=== PATIENT | female | born 1995 | race African-American/Black ===

== ENCOUNTER 2018-07-09 03:49 | Emergency (ER) | payer MEDICAID ==
[~2018-07-09] VITALS: Ht 157.5 cm; Wt 61.0 kg
[~2018-07-09 03:49] MED LIST: ANTIBIOTICS; FERR-43 PO; PREN-88 PO; VICODIN
[2018-07-09 04:09] VITALS: BP 135/71
== END 2018-07-09 07:55 | disposition left against medical advice (07) ==
LOC: ER 07:50
DX: Z53.21 Procedure and treatment not carried out due to patient leaving prior to being seen by health care provider (principal)

== ENCOUNTER 2018-07-12 14:06 | Emergency (ER) | payer MEDICAID ==
[~2018-07-12] VITALS: Ht 165.1 cm; Wt 60.0 kg
[2018-07-12] MEDS: ACETAMINOPHEN 325MG TABLET PO PRN ×3 (15:56→16:11)
[2018-07-12] MEDS ORDERED: METOCLOPRAMIDE HCL 10MG/2ML VIAL IV NR (16:15)
[2018-07-12 18:01] LABS: BASOPHILS % 0.5 % (0.0-2.0); EOSINOPHILS % 0.3 % (0.0-5.0); HEMATOCRIT. 35.1 % (36.0-48.0); HEMOGLOBIN. 11.7 g/dL (12.0-16.0); LYMPHOCYTES % 15.1 % (20.0-50.0); MEAN CORPUSCULAR HEMOGLOBIN 29.6 pg (28.0-32.0); MEAN PLATELET VOLUME 9.6 fl (7.4-10.4); MONOCYTES % 7.1 % (2.0-8.0); PLATELET 243 x1000/uL (130-400); RED BLOOD CELL COUNT 3.95 mill/uL (4.2-5.4); RED CELL DISTRIBUTION WIDTH 15.2 % (11.6-14.6)
[2018-07-12 18:07] LABS: CHLORIDE 105 mEq/L (98-107)
[2018-07-12 18:31] LABS: B-HCG QUANTITATIVE 1740 mIU/mL (<3)
[2018-07-12 19:40] LABS: CLARITY URINE CLEAR (CLEAR); COLOR URINE YELLOW (YELLOW); KETONES URINE 2+ (NEGATIVE); LEUKOCYTE ESTERASE URINE NEGATIVE (NEGATIVE); NITRITE URINE NEGATIVE (NEGATIVE); OCCULT BLOOD URINE 3+ (NEGATIVE); PH URINE 6.5 (4.5-8.0); PROTEIN URINE NEGATIVE (NEGATIVE); SPECIFIC GRAVITY URINE 1.015 (1.005-1.030)
[2018-07-12] MEDS ORDERED: HYDROCODONE/ACETAMINOPHEN 5/325MG TABLET PO ONE (20:00)
[2018-07-12 20:44] VITALS: BP 114/53
== END 2018-07-12 20:46 | disposition home or self-care (01) ==
LOC: ER 14:06
DX: O03.9 Complete or unspecified spontaneous abortion without complication (principal); O21.9 Vomiting of pregnancy, unspecified; R11.0 Nausea; Z3A.00 Weeks of gestation of pregnancy not specified
CPT/HCPCS: 36415; 76856; 80053; 81003; 84702; 85025; 86850; 86900; 86901; 96374; 99284; J2765